=== PATIENT | male | born 1980 | race Caucasian/White ===

== ENCOUNTER 2025-09-12 08:57 | Emergency (ER) | payer OTHER, SELFPAY ==
--- OUTSIDE RECORDS SUMMARY | 2025-09-12 08:58 | XMS_ITS | Clinical Summary ---
Author Organization [facility] Address [address] [place] [address] Care Team Providers Care Security Installer Name Role Phone Pcp, Pt Kevin MONSON Primary Care Provider [phone] Source Comments You are receiving this document as you are listed as the primary care provider,follow-up provider, or the patient has been referred to you for consultation.This is in compliance with the Medicare and[facility] EHR Incentive Program,which states Providers who transition their patient to another setting of careor provider of care or refers their patient to another provider of care shouldprovide summary care record for each transition of care or referral. [facility] Allergies No known active allergies Medications azithromycin (AKA ZITHROMAX) 250 MG tablet LW Addl Instr:Take 2 tablets by mouth on day 1, then take 1 tablet by mouth daily on days 2-5. 1 08/10/2006 Active ALBUTEROL IN Inhale 1-2 puffs every 4 hours as needed. 51 3 08/10/2006 Active Active Problems No known active problems Social History Tobacco Use Types Packs/Day Years Used Date Smoking Tobacco: Never Smokeless Tobacco: Never Sex and Gender Information Value Date Recorded Sex Assigned at Not on file Legal Sex Male 10:45 PM CDT Gender Identity Not on file Sexual Orientation Not on file Last Filed Vital Signs Vital Sign Reading Time Taken Comments Blood Pressure 136/78 10/30/2017 8:06 AM [facility] Pulse 86 10/30/2017 8:06 AM [facility] [employer] [employer] Temperature 36.8 C (98.3 F) 10/30/2017 8:06 AM [facility] Respiratory Rate 18 10/30/2017 8:06 AM [facility] [employer] [employer] [facility] Oxygen Saturation 97% 10/30/2017 8:06 AM [facility] [employer] [employer] Inhaled Oxygen Concentration - - Weight 89.8 kg (197 lb 15.9 oz) 08/10/2006 9:40 AM CDT C: 89.8kg Height - - Body Mass Index - - Plan of Treatment Health Maintenance Due Date Last Done Comments Colon Cancer Screening Plan Due 1978 Hep C Screening (Preventive Services) 1978 HIV Screening (Preventive Services) 1994 Adult Preventive Visit 1996 DTaP/Tdap/Td Vaccine (1 - Tdap) 1997 HepB Vaccine (1) 1997 Cholesterol 2013 COVID-19 Vaccine (1 - 2023-2 5 season) 2025 Influenza Vaccine (#1) 2025 Zoster/Shingles Vaccine (1 of 2) 2028 HepA Vaccine Aged Out No longer eligi ble based on patient's age to complete this topic Hib Vaccine Aged Out No longer eligi ble based on patient's age to complete this topic IPV (Polio) Vaccine Aged Out No longe r eligible based on patient's age to complete this topic MCV4 Vaccine Aged Out No longer eligi ble based on patient's age to complete this topic Meningococcal B Vaccine Aged Out No l onger eligible based on patient's age to complete this topic Pneumococcal Vaccine Aged Out No long er eligible based on patient's age to complete this topic Insurance [facility] [place] [id number] Care Teams Security Installer Relationship Specialty Start Date End Date Pcp, [place] [address] 63 PCP - General 10/30/17
[2025-09-12 09:03] VITALS: BP 149/93; PULSE 87; RESP 20; TEMP 35.9; O2SAT 96
--- NOTE | 2025-09-12 09:11 | ED.GENADULT ---
HPI - General Adult General Chief complaint: Laceration/Wound Stated complaint: R hand laceration Time Seen by Provider: 09/12/25 09:07 Source: patient Mode of arrival: ambulatory Limitations: no limitations History of Present Illness HPI narrative: 45-year-old male presenting today with wound injury to the pointer finger of the right hand. Patient was using a meat supervisor and sliced off the pad of the pointer finger. Tetanus shot was in 2013. Related Data Home Medications ?Medication ?Instructions ?Recorded ?Confirmed No Known Home Medications 09/12/25 09/12/25 Allergies Allergy/AdvReac Type Severity Reaction Status Date / Time No Known Drug Allergies Allergy Verified 09/12/25 09:03 Review of Systems Status of ROS: Reports: 6 or more systems reviewed and unremarkable except as noted in History and below [facility] Social History Smoking Status: Never smoker Second hand tobacco smoke exposure: No How often do you have a drink containing alcohol: never How often do you have six or more drinks on one occasion: Never AUDIT-C Alcohol total score: 0 Non-prescribed substance use: denies use Exam Narrative: Exam Narrative: Well-nourished well-developed patient in no acute distress. Alert and oriented. Answers questions appropriately. Mood and affect are appropriate. Thoughts are goal oriented and rational. No tangential or magical thinking noted. Patient speaks in full sentences without needing to catch his breath. HEENT: Normocephalic atraumatic. Pupils are equally round reactive to light. Extraocular muscles are intact. Conjunctivae are moist without any icterus noted. Extremities: Patient has a clean slice of the pad of the pointer finger of the right hand. There is no arterial bleeds. The entire area is oozing. There is no visible bone. Does not impact the nail. Const: Vital Signs, click to edit/add: Vital Signs - 24 hr 09/12/25 09:03 Temperature 96.7 F L Pulse Rate [Pulse Oximeter] 87 Respiratory Rate 20 Blood Pressure [Ri ght Upper Arm] 149/93 H Pulse Oximetry 96 Oxygen Delivery Me thod Room Air Course Course ED Course: There is nothing that can be sutured. Surgi- foam applied to the area go with a pressure dressing. Vital Signs Vital signs: Initial Vital Signs Temperature 96.7 F L 09/12/25 09:03 Temperature Source Temporal Artery Scan 09/12/25 09:03 Pulse Rate 87 09/12/25 09:03 Respiratory Rate 20 09/12/25 09:03 Blood Pressure 149/93 H 09/12/25 09:03 Blood Pressure Mean 111 H 09/12/25 09:03 Blood Pressure Position High-Fowlers 09/12/25 09:03 Pulse Oximetry 96 09/12/25 09:03 Oxygen Delivery Method Room Air 09/12/25 09:03 Vital Signs Temperature 96.7 F L 09/12/25 09:03 Pulse Rate 87 09/12/25 09:03 Respiratory Rate 20 09/12/25 09:03 Blood Pressure 149/93 H 09/12/25 09:03 Pulse Oximetry 96 09/12/25 09:03 Oxygen Delivery Method Room Air 09/12/25 09:03 Temperature 96.7 F L 09/12/25 09:03 Pulse Rate 87 09/12/25 09:03 Respiratory Rate 20 09/12/25 09:03 Blood Pressure 149/93 H 09/12/25 09:03 Pulse Oximetry 96 09/12/25 09:03 Oxygen Delivery Method Room Air 09/12/25 09:03 Medications Administered Medications: Discontinued Medications Generic Name Dose Route Start Last Admin Trade Name Freq PRN Reason Stop Dose Admin Diphtheria/Tetanus/Acell Pertussis 0.5 ml 09/12/25 09:10 09/12/25 09:35 Tetanus/Diphth/Pertussis 0.5 Ml Syringe IM 09/12/25 09:11 0.5 ml .ONCE ONE Administration Medical Decision Making MDM Narrative Medical decision making narrative: Avulsion of the pad of the finger tip. Treated per above. Tetanus shot updated today. Discharge Plan Discharge Clinical Impression: Avulsion of skin Patient Disposition: Home, Self-Care Condition: Stable Additional Instructions: Leave dressing in place for 24 hours. If blood has soaked through the dressing, can change the dressing in 24 hours. If dressing remains clear, can leave the dressing on for 48 hours and change it then. Keep finger clean and dry. Once a scab forms then you can start to get it wet such as in the shower. Avoid soaking it such as swimming, doing dishes or taking baths. Watch for signs and symptoms of infection including increasing redness of the area, purulent drainage, or fever. If this occurs follow-up right away with your doctor or return to the ER. Prescriptions: No Action No Known Home Medications Follow Up/Referrals: Prateek Hughes MD [Primary Care Provider, Family Practice] Stand Alone Forms: [employer] Info Instructions
[2025-09-12] MEDS: TETANUS/DIPHTH/PERTUSSIS 0.5 ML SYRINGE IM (09:35)
== END 2025-09-12 09:47 | disposition home or self-care (01) ==
LOC: ED 09:26
PROVIDERS: Emergency Provider Family Medicine; PCP Family Medicine
DX: S61.210A Laceration without foreign body of right index finger without damage to nail, initial encounter (principal); W29.0XXA Contact with powered kitchen appliance, initial encounter
CPT/HCPCS: 90471; 90715; 99283